=== PATIENT | male | born 1950 | race Caucasian/White ===

== ENCOUNTER → 2017-03-25 | Outpatient (REF) | payer BC ==
[2017-03-25 20:42] LABS: INFLUENZA A AMPLIFICATION POSITIVE (NEGATIVE); INFLUENZA B AMPLIFICATION NEGATIVE (NEGATIVE)
== END ==
LOC: M SFHCLERA 10:59
DX: R05 Cough (principal)

== ENCOUNTER → 2017-03-25 | Outpatient (CLI) | payer BC | LOC: M LRY 09:59 | DX: R05 Cough (principal) | CPT/HCPCS: 71046 ==